=== PATIENT | male | born 1995 | race African-American/Black ===

== ENCOUNTER → 2021-06-09 | Outpatient (CLI) | payer OTHER | LOC: COL.RAD 12:08 → EDBD 13:00 → COL.RAD 13:00 | DX: I26.99 Other pulmonary embolism without acute cor pulmonale (principal); K76.9 Liver disease, unspecified | CPT/HCPCS: Q9967 ==

== ENCOUNTER → 2021-06-14 | Outpatient (CLI) | payer OTHER | LOC: COL.VAS 12:02 → EDBD 12:45 → COL.VAS 12:45 | DX: I26.99 Other pulmonary embolism without acute cor pulmonale (principal) ==